=== PATIENT | male | born 1970 | race Caucasian/White ===

== ENCOUNTER 2024-06-13 10:33 | Emergency (ER) | payer OTHER, SELFPAY ==
[2024-06-13 10:50] VITALS: BP 137/92; PULSE 91; TEMP 36.8; O2SAT 97; BMI 29.0
--- NOTE | 2024-06-13 11:02 | ED_ITS ---
HPI - Animal Bite General Stated Complaint: UPPER EXTREMITY PAIN, REDDNESS, ANIMAL BITE Time Seen by Provider: 06/13/24 10:57 Source: patient and family Mode of arrival: walk-in Limitations: no limitations History of Present Illness HPI narrative: This patient is here with a bite to his right index finger. It occurred yesterday by a stray cat. However the cat is now inside their house and is being domesticated. The cat was placed on amoxicillin for respiratory symptoms and is getting better. He has no allergies to antibiotics. He has noticed little bit of redness occurring in the area of the bite today. The animal was a small kitten. He needs updated on his tetanus as well. He has no other complaints. Does not have any pain in his axilla or the forearm. Related Data Home Medications ?Medication ?Instructions ?Recorded ?Confirmed omeprazole 20 mg capsule,delayed 20 mg PO QAM 06/13/24 06/13/24 release Allergies Allergy/AdvReac Type Severity Reaction Status Date / Time No Known Drug Allergies Allergy Verified 06/13/24 10:57 Exam Narrative Exam Narrative: Well-hydrated well-nourished male no apparent distress actually very mild discomfort over the index finger where he was bit. He is afebrile. Patient has an area of erythema over the metacarpal phalangeal joint not extending into the extensor tendon. There is no lymphangitis. There is no purulent drainage or discharge. There are 2 tiny puncture wounds consistent with a cat bite over the area of swelling. Does not have any neuromuscular dysfunction. The rest the hand and forearm is all completely normal. Constitutional Vital Signs, click to edit/add: Last Vital Signs Temp 98.3 F 06/13/24 10:50 Pulse 91 H 06/13/24 10:50 Resp 14 06/13/24 10:50 BP 137/92 H 06/13/24 10:50 Pulse Ox 97 06/13/24 10:50 O2 Del Method Room Air 06/13/24 10:50 Course Vital Signs Vital signs: Vital Signs Temperature 98.3 F 06/13/24 10:50 Pulse Rate 91 H 06/13/24 10:50 Respiratory Rate 14 06/13/24 10:50 Blood Pressure 137/92 H 06/13/24 10:50 Pulse Oximetry 97 06/13/24 10:50 Oxygen Delivery Method Room Air 06/13/24 10:50 Temperature 98.3 F 06/13/24 10:50 Pulse Rate 91 H 06/13/24 10:50 Respiratory Rate 14 06/13/24 10:50 Blood Pressure 137/92 H 06/13/24 10:50 Pulse Oximetry 97 06/13/24 10:50 Oxygen Delivery Method Room Air 06/13/24 10:50 MDM - Animal Bite MDM Narrative Medical decision making narrative: Patient sustained cat bite by a feral cat but the now the cat is inside can be observed as domesticated. Will start him on Augmentin. He should be reevaluated in 48 to 72 hours or return to emergency room if the area is getting worse or extending up his hand or forearm. Will be started on Augmentin. Will be given tetanus update as well. Discharge Plan Discharge Stand Alone Forms: Work/School Release, Portal Instructions Chief Complaint: Animal Bite Clinical Impression: Cat bite involving extremity Patient Disposition: Home, Self-Care Time of Disposition Decision: 11:05 Prescriptions / Home Meds: No Action omeprazole 20 mg capsule,delayed release(DR/EC) 20 mg PO QAM Print Language: Sammarinese Additional Instructions: Augmentin. Warm compresses/return if symptoms of redness extend into the hand and forearm area. Follow-up with primary care doctor Referrals: Physician,Non-Staff, MD [Primary Care Provider] - 1 week
[2024-06-13] MEDS: ADACEL DIPH,PERTUSS(ACELL),TET VAC/PF 0.5 ML ADULT SYRINGE IM (11:19)
== END 2024-06-13 11:27 | disposition home or self-care (01) ==
PROVIDERS: Emergency Provider Emergency Medicine Emergency Medical Services
DX: S61.230A Puncture wound without foreign body of right index finger without damage to nail, initial encounter (principal); W55.01XA Bitten by cat, initial encounter; Z23 Encounter for immunization
CPT/HCPCS: 90471; 90715; 99284